=== PATIENT | male | born 1990 | race Caucasian/White ===

== ENCOUNTER 2025-07-08 11:15 | Emergency (ER) | payer OTHER, SELFPAY ==
[2025-07-08 11:15] VITALS: BP 136/78; PULSE 71; RESP 14; TEMP 36.6; O2SAT 96; BMI 34.9
--- NOTE | 2025-07-08 11:40 | EDS_ITS ---
HPI History of Present Illness Chief Complaint: Upper Extremity Injury Narrative Narrative: Patient is a 35-year-old male with past medical history of hearing impaired, anxiety, depression who presents to the emergency department the chief complaint of left thumb laceration. Patient states that he was working earlier and a machine cut his hand. He states that he is unsure when his last tetanus shot was. Tetanus shot will be updated. [facility] Medical History Anxiety Depression Hard of hearing Allergy/AdvReac Type Severity Reaction Status Date / Time No Known Allergies Allergy Verified 07/08/25 11:15 Social History Smoking Status: Never smoker ROS ROS ED ROS Narrative Neurological: Denies any numbness, weeks, tingling Musculoskeletal: Complains of left hand pain Skin: Complains of cut to the left thumb as noted above EXAM Physical Exam Narrative Exam Narrative: General: Patient was lying in bed rest comfortably did not appear to be in acute distress Head: Atraumatic, normocephalic Eyes: PERRL bilaterally, EOMI bilaterally, no conjunctival injection noted Neck: Soft, supple, trachea midline Cardiovascular: Regular rate Extremities: Patient is able to give me thumbs up sign, okay sign, flex and extend his thumb without any difficulty, radial pulses +2/4 in the left upper extremity Neurological: Patient follow commands and that he was at [facility] the year is 2024 sensation grossly intact to the median, ulnar and radial nerve distribution bilaterally Skin: Warm, dry, patient has a proximately 2-1/2 cm laceration over his left thenar eminence no active bleeding Const Vital Signs: 07/08/25 11:15 Temperature 98 F Temperature Source Temporal Pulse Rate 71 Respiratory Rate 14 Blood Pressure 136/78 H Blood Pressure Mean 97 Pulse Ox 96 Oxygen Delivery Method Room Air MDM MDM MDM Narrative Medical decision making narrative: Patient is a 35-year-old male who presents to the emergency department chief complaint of laceration over his left thenar eminence. On the differential diagnose includes Melamin to laceration, extensor tendon injury although clinically have low suspicion for this as he is able to fully flex and extend his finger without difficulty, retained foreign body. Patient's tetanus shot will be updated. Patient is a x-ray of his thumb was did not show any acute foreign body no fractures. Patient had laceration repaired see procedure note for separate details. Advised the patient to watch out for signs of infection if this occur he needs antibiotics and should return to the emergency department or call his doctor. He is advised to have these removed in approximately 7 to 10 days keep the area dry and clean. They advised to return with worsening symptoms or concerns. All question concerns answered was discharged home in stable condition. Procedure note Procedure name: Laceration repair Indication: Reduce risk of infection Location: Left thenar eminence 2-1/2 cm simple Preprocedure diagnosis: Laceration Postprocedure diagnosis: Repaired laceration Informed consent was obtained prior to procedure started. Procedure: The appropriate timeout was taken. The area was prepped and draped in usual sterile fashion. Local anesthesia was achieved using 3 cc of lidocaine 1% without epinephrine. Wound was copiously irrigated. 6 4-0 Ethilon interrupted sutures were placed. Estimated blood loss was less than 0.5 mL. Dressing was applied to the area and anticipatory guidance, as well as standard postprocedure care was explained. Return precautions are given. Patient tolerated procedure well without any complications. Follow-up visit for suture removal and evaluation of laceration. Discharge Plan Triage Chief Complaint: Upper Extremity Injury ED Provider: Chan Cervantes Dx/Rx/DC Orders Clinical Impression: Laceration of hand, left, Hand pain, left Primary Care Provider: Care Physician,No Primary Referrals: Care Physician,No Primary [Primary Care Provider] - Activity Restrictions/Additional Instructions: Have your sutures removed in approximately 7 to 10 days. Watch out for signs of infection such as pus coming out of the wound or surrounding redness if this is to occur you need antibiotics. Do not soak your sutures do not put any ointment on these. Return with worsening symptoms or any other concerns. You may shower and let warm soapy water run over these do not scrub them. Print Language: Ivorian Disposition Disposition: Home, Self Care
--- NOTE | 2025-07-08 11:57 | RAD_ITS ---
PROCEDURE: FINGER(S) MIN 2 VIEWS 07/08/2025 REASON FOR EXAM: THUMB TECHNIQUE: Procedure Code: RADFIN Modality: DX Procedure: FINGER(S) MIN 2 VIEWS Laterality: Left COMPARISON: None. FINDINGS: Bones: Triscaphe joint and 1st metacarpal and phalanges negative. Joints: Negative. Soft tissues: No radiopaque foreign body. Minimal soft tissue defect at the level of the mid left metacarpal Other: Otherwise negative RAD/Finger(s) Min 2 Views IMPRESSION: Negative left thumb Reading Location: [id number]
[2025-07-08] MEDS: Lidocaine 1% (20 ml mdv) 20 ML Vial 10 ML INFILT (12:05)
[2025-07-08 12:56] VITALS: BP 135/76; PULSE 58; RESP 16; TEMP 36.8; O2SAT 99
== END 2025-07-08 13:00 | disposition home or self-care (01) ==
PROVIDERS: Emergency Provider Emergency Medicine; Visit Provider Emergency Medicine
DX: S61.012A Laceration without foreign body of left thumb without damage to nail, initial encounter (principal); W31.9XXA Contact with unspecified machinery, initial encounter; Y92.89 Other specified places as the place of occurrence of the external cause; Z23 Encounter for immunization
CPT/HCPCS: 12001; 73140; 90471; 90715; 99283